=== PATIENT | female | born 1955 | race Caucasian/White ===

== ENCOUNTER 2020-03-17 06:15 | Observation (INO) ==
[2020-03-17] MEDS ORDERED: Aspirin 81 MG TAB.CHEW PO ONE (06:34)
[2020-03-17] MEDS ORDERED: 0.9 % Sodium Chloride 1,000 ML IV ONE ×2 (06:34→13:03)
[2020-03-17] MEDS ORDERED: Ipratropium/Albuterol Neb 3 ML IH ONE ×3 (06:34→11:40)
[2020-03-17] MEDS ORDERED: methylPREDNISolone 125 MG/2 ML VIAL IVP ONE (06:34)
[2020-03-17 07:03] LABS: Basophils # 0.1 K/mcL (0.0-0.2); Basophils % 0.4 %; Eosinophils % 8.7 %; Hematocrit 36.1 % (35.3-44.9); Hemoglobin 11.6 g/dL (11.5-15.4); Immature Granulocytes % 0.5 % (0-4); Lymphocytes # 1.1 K/mcL (0.6-4.6); Lymphocytes % 4.9 %; Mean Corpuscular HGB Conc 32.1 g/dL (31.6-35.5); Mean Corpuscular Hemoglobin 27.6 pg (28.0-33.3); Mean Platelet Volume 9.6 fL (9.4-12.4); Monocytes # 0.6 K/mcL (0.0-1.3); Monocytes % 2.6 %; Platelet Count 384 K/mcL (140-400); Segmented Neutrophils % 82.9 %; White Blood Count 22.5 K/mcL (4.3-11.1)
[2020-03-17 07:13] LABS: Neutrophils # 18.7 K/mcL (1.6-8.9); Prothrombin Time 11.6 Seconds (9.4-12.1)
[2020-03-17 07:24] LABS: Alanine Aminotransferase 10 Units/L (7-52); Albumin 4.4 g/dL (3.5-5.7); Albumin/Globulin Ratio 1.7 (1.1-2.2); Alkaline Phosphatase 55 Units/L (34-104); Aspartate Amino Transferase 12 Units/L (13-39); BUN/Creatinine Ratio 17 (6-26); Bilirubin,Total 0.3 mg/dL (0.3-1.0); Blood Urea Nitrogen 10 mg/dL (8-23); Calcium 9.2 mg/dL (8.6-10.3); Carbon Dioxide 29 mEq/L (23-29); Chloride 95 mEq/L (98-107); Globulin 2.6 g/dL (2.4-3.5); Glucose 252 mg/dL (70-105); Osmolality,Calculated 284 (280-300); Potassium 4.8 mEq/L (3.5-5.1); Sodium 133 mEq/L (136-145); Troponin I < 0.03 ng/mL (< 0.04); eGFR For African Americans > 60 (> 60); eGFR For Non-African Americans > 60 (> 60)
[2020-03-17 07:37] LABS: Bilirubin,Urine Negative (Negative); Blood,Urine Negative (Negative); Clarity,Urine Clear (Clear); Glucose,Urine (UA) Normal (Normal); Ketones,Urine Negative (Negative); Leukocyte Esterase,Urine Negative (Negative); Nitrite,Urine Negative (Negative); Protein,Urine 30 mg/dL (Neg-Trace); Urobilinogen,Urine Normal (Normal)
[2020-03-17 07:48] LABS: Color,Urine Light Yellow (Yellow)
[2020-03-17 07:54] LABS: Magnesium 1.3 mg/dL (1.6-2.6)
[2020-03-17 07:56] LABS: Amorphous Sediment,Urine Few per hpf (Few); Bacteria,Urine Few per hpf (None-Few); Granular Casts,Urine Few per lpf (None Seen); Mucus,Urine Few per lpf (Few); RBC,Urine 0-3 per hpf (0-3); Squamous Epithelial Cell,Urine Few per lpf (None-Few); WBC,Urine 0-3 per hpf (0-3)
[2020-03-17] MEDS ORDERED: Isovue-370 500 ML BOTTLE IVP ONE (08:08)
[2020-03-17] MEDS ORDERED: levoFLOXacin 750 MG/150 ML 750 MG/150 ML BAG IVPB ONE (08:20)
[2020-03-17 08:22] LABS: ABG Base Excess 3 mEq/L (-2 to 3); ABG HCO3 30 mEq/L (21-27); ABG Oxygen Saturation 94 % (95-98); ABG PCO2 58 mmHg (35-45); ABG PH 7.32 pH Units (7.32-7.45); ABG PO2 77 mmHg (85-104); ABG TCO2 32 mEq/L (20-26)
[2020-03-17] MEDS ORDERED: Ondansetron ODT 4 MG TAB.RAPDIS SL PRN (13:00)
[2020-03-17] MEDS ORDERED: Naloxone 0.4 MG/ML INJ IVP PRN (13:00)
[2020-03-17] MEDS ORDERED: Dextrose Gel 15 GM/37.5 ML TUBE PO PRN ×2 (13:02)
[2020-03-17] MEDS ORDERED: D5% in Water 1,000 ML IVC PRN (13:02)
[2020-03-17] MEDS ORDERED: *HR* Dextrose 50 % in Water (Vial) 50 ML VIAL IVP PRN (13:02)
[2020-03-17] MEDS: Ipratropium/Albuterol Neb 3 ML IH PRN ×2 (17:33→23:30)
[2020-03-17] MEDS: Azithromycin 500 MG in 0.9 % Sodium Chloride 250 ML IVPB SCH (17:54)
[2020-03-17] MEDS: MethylPREDNISolone 40 MG/ML VIAL IVP SCH (17:55)
[2020-03-17] MEDS: Magnesium Oxide 400 MG TABLET PO SCH ×2 (18:05→20:29)
[2020-03-17] MEDS: Insulin LISPRO 300 UNITS/3 ML VIAL SQ SCH ×2 (18:06→20:29)
[2020-03-17] MEDS: Gabapentin 300 MG CAPSULE PO SCH ×2 (18:06→20:29)
[2020-03-17] MEDS: carvediloL 25 MG TABLET PO SCH (18:06)
[2020-03-17 20:42] LABS: Estimated Average Glucose 140 mg/dl; Hemoglobin A1C 6.5 %
[2020-03-17] MEDS ORDERED: NON-FORMULARY MEDICATION 1 EACH EACH (Cetirizine Hcl [All Day Allergy] 10 MG) PO SCH (21:00)
[2020-03-17] MEDS ORDERED: MAGNESIUM CHLORIDE 71.5 MG PO SCH (21:00)
[2020-03-18] MEDS: MethylPREDNISolone 40 MG/ML VIAL IVP SCH ×4 (00:43→17:55)
[2020-03-18] MEDS: Ipratropium/Albuterol Neb 3 ML IH PRN ×3 (07:16→22:19)
[2020-03-18] MEDS: STIOLTO RESPIMAT IH SCH (07:17)
[2020-03-18 07:47] LABS: Basophils % 0.1 %; Hematocrit 31.2 % (35.3-44.9); Hemoglobin 10.1 g/dL (11.5-15.4); Immature Granulocytes % 0.5 % (0-4); Lymphocytes # 0.6 K/mcL (0.6-4.6); Lymphocytes % 4.6 %; Mean Corpuscular HGB Conc 32.4 g/dL (31.6-35.5); Mean Corpuscular Hemoglobin 27.3 pg (28.0-33.3); Mean Corpuscular Volume 84.3 fL (83.0-100.0); Mean Platelet Volume 9.3 fL (9.4-12.4); Monocytes # 0.2 K/mcL (0.0-1.3); Monocytes % 1.6 %; Neutrophils # 12.3 K/mcL (1.6-8.9); Platelet Count 307 K/mcL (140-400); Segmented Neutrophils % 93.2 %; White Blood Count 13.2 K/mcL (4.3-11.1)
[2020-03-18] MEDS: Insulin LISPRO 300 UNITS/3 ML VIAL SQ SCH ×4 (08:24→20:26)
[2020-03-18] MEDS: carvediloL 25 MG TABLET PO SCH ×2 (08:26→16:38)
[2020-03-18] MEDS: Loratadine 10 MG TABLET PO SCH (08:27)
[2020-03-18] MEDS: Aspirin Enteric Coated 81 MG Tablet PO SCH (08:27)
[2020-03-18] MEDS: Isosorbide MONOnitrate (24 HR) 30 MG TAB.ER.24H PO SCH (08:28)
[2020-03-18] MEDS: Magnesium Oxide 400 MG TABLET PO SCH ×3 (08:28→20:25)
[2020-03-18] MEDS: Folic Acid 1 MG TABLET PO SCH (08:28)
[2020-03-18] MEDS: Gabapentin 300 MG CAPSULE PO SCH ×3 (08:29→20:26)
[2020-03-18] MEDS: Nicotine 21 MG PATCH.TD24 TD SCH (08:29)
[2020-03-18] MEDS: Multivit/Ca/Min/Fe/FA 1 TAB TABLET PO SCH (08:30)
[2020-03-18] MEDS: lisinopriL 10 MG TABLET PO SCH (08:30)
[2020-03-18 09:09] LABS: BUN/Creatinine Ratio 22 (6-26); Blood Urea Nitrogen 11 mg/dL (8-23); Carbon Dioxide 32 mEq/L (23-29); Chloride 97 mEq/L (98-107); Glucose 179 mg/dL (70-105); Osmolality,Calculated 284 (280-300); Potassium 4.4 mEq/L (3.5-5.1); Sodium 135 mEq/L (136-145); eGFR For African Americans > 60 (> 60); eGFR For Non-African Americans > 60 (> 60)
[2020-03-18 09:50] LABS: Calcium 8.7 mg/dL (8.6-10.3)
[2020-03-18] MEDS ORDERED: GuaiFENesin Liq 200 MG/10 ML UDC PO PRN (11:12)
[2020-03-18] MEDS: Azithromycin 500 MG in 0.9 % Sodium Chloride 250 ML IVPB SCH (16:36)
[2020-03-18 20:29] LABS: Bilirubin,Urine Negative (Negative); Blood,Urine Negative (Negative); Clarity,Urine Slightly Cloudy (Clear); Color,Urine Yellow (Yellow); Glucose,Urine (UA) 500 mg/dL (Normal); Ketones,Urine Negative (Negative); Leukocyte Esterase,Urine Negative (Negative); Nitrite,Urine Negative (Negative); Protein,Urine Negative (Neg-Trace); Urobilinogen,Urine Normal (Normal)
[2020-03-18 20:36] LABS: Bacteria,Urine Few per hpf (None-Few); Mucus,Urine Few per lpf (Few); RBC,Urine 0-3 per hpf (0-3); Squamous Epithelial Cell,Urine Few per lpf (None-Few); WBC,Urine 0-3 per hpf (0-3)
[2020-03-19] MEDS: MethylPREDNISolone 40 MG/ML VIAL IVP SCH ×2 (00:39→05:21)
[2020-03-19 06:55] LABS: Hematocrit 29.3 % (35.3-44.9); Hemoglobin 9.7 g/dL (11.5-15.4); Mean Corpuscular HGB Conc 33.1 g/dL (31.6-35.5); Mean Corpuscular Hemoglobin 27.8 pg (28.0-33.3); Mean Platelet Volume 9.5 fL (9.4-12.4); Platelet Count 329 K/mcL (140-400); Red Blood Count 3.49 M/mcL (3.82-4.97); Red Cell Distribution Width 13.7 % (11.5-14.5)
[2020-03-19 07:29] LABS: BUN/Creatinine Ratio 23 (6-26); Blood Urea Nitrogen 11 mg/dL (8-23); Calcium 8.7 mg/dL (8.6-10.3); Carbon Dioxide 32 mEq/L (23-29); Chloride 96 mEq/L (98-107); Glucose 168 mg/dL (70-105); Osmolality,Calculated 279 (280-300); Potassium 4.6 mEq/L (3.5-5.1); Sodium 133 mEq/L (136-145); eGFR For African Americans > 60 (> 60); eGFR For Non-African Americans > 60 (> 60)
[2020-03-19 08:07] VITALS: BP 145/61
[2020-03-19] MEDS: Isosorbide MONOnitrate (24 HR) 30 MG TAB.ER.24H PO SCH (08:08)
[2020-03-19] MEDS: Aspirin Enteric Coated 81 MG Tablet PO SCH (08:08)
[2020-03-19] MEDS: Folic Acid 1 MG TABLET PO SCH (08:08)
[2020-03-19] MEDS: carvediloL 25 MG TABLET PO SCH (08:08)
[2020-03-19] MEDS: Gabapentin 300 MG CAPSULE PO SCH (08:08)
[2020-03-19] MEDS: Loratadine 10 MG TABLET PO SCH (08:08)
[2020-03-19] MEDS: Multivit/Ca/Min/Fe/FA 1 TAB TABLET PO SCH (08:08)
[2020-03-19] MEDS: Nicotine 21 MG PATCH.TD24 TD SCH (08:09)
[2020-03-19] MEDS: lisinopriL 10 MG TABLET PO SCH (08:09)
[2020-03-19] MEDS: Insulin LISPRO 300 UNITS/3 ML VIAL SQ SCH ×2 (08:10→11:52)
[2020-03-19] MEDS: Magnesium Oxide 400 MG TABLET PO SCH (08:30)
[2020-03-19] MEDS ORDERED: cefTRIAXone 1,000 MG in 0.9 % Sodium Chloride Mini Bag 100 ML IVPB SCH (09:00)
[2020-03-19] MEDS ORDERED: Magnesium Oxide 400 MG TABLET PO ONE (09:00)
[2020-03-19] MEDS: Ipratropium/Albuterol Neb 3 ML IH PRN (09:52)
[2020-03-19] MEDS: STIOLTO RESPIMAT IH SCH (09:52)
[2020-03-19 10:40] LABS: Adenovirus Not Detected (Not Detect); Bordetella Pertussis Not Detected (Not Detect); Chlamydophila pneumoniae Not Detected (Not Detect); Coronavirus 229E Not Detected (Not Detect); Coronavirus HKU1 Not Detected (Not Detect); Coronavirus NL63 Not Detected (Not Detect); Coronavirus OC43 Not Detected (Not Detect); Human Metapneumovirus Not Detected (Not Detect); Human Rhinovirus/Enterovirus Not Detected (Not Detect); Influenza A Subtype 2009 H1 Not Detected (Not Detect); Influenza B Not Detected (Not Detect); Mycoplasma pneumoniae Not Detected (Not Detect); Parainfluenza Virus 1 Not Detected (Not Detect); Parainfluenza Virus 2 Not Detected (Not Detect); Parainfluenza Virus 3 Not Detected (Not Detect); Parainfluenza Virus 4 Not Detected (Not Detect); Respiratory Syncytial Virus Not Detected (Not Detect)
[2020-03-19] MEDS ORDERED: MethylPREDNISolone 40 MG/ML VIAL IVP SCH (16:00)
== END 2020-03-19 13:59 | disposition home or self-care (01) ==
LOC: INPPIK 06:15 → EMEROOPIK 06:15 → INPPIK 13:23
PROVIDERS: ADMIT Family Medicine; ATTEND Family Medicine

== ENCOUNTER 2021-04-20 17:12 | Inpatient (IN) ==
[2021-04-20 18:27] LABS: Basophils % 0.3 %; Eosinophils % 0.2 %; Hematocrit 31.8 % (35.3-44.9); Hemoglobin 9.8 g/dL (11.5-15.4); Immature Granulocytes % 0.5 % (0-4); Lymphocytes # 0.6 K/mcL (0.6-4.6); Lymphocytes % 4.8 %; Mean Corpuscular HGB Conc 30.8 g/dL (31.6-35.5); Mean Corpuscular Hemoglobin 28.1 pg (28.0-33.3); Mean Corpuscular Volume 91.1 fL (83.0-100.0); Mean Platelet Volume 11.1 fL (9.4-12.4); Monocytes % 7.6 %; Red Blood Count 3.49 M/mcL (3.82-4.97); Red Cell Distribution Width 15.7 % (11.5-14.5); Segmented Neutrophils % 86.6 %; White Blood Count 12.5 K/mcL (4.3-11.1)
[2021-04-20 18:36] LABS: INR 1.3; Prothrombin Time 14.9 Seconds (9.4-12.1)
[2021-04-20 18:37] LABS: Activated Partial Thrombo Time 28.4 Seconds (26.0-36.0)
[2021-04-20 18:38] LABS: Neutrophils # 10.8 K/mcL (1.6-8.9); Platelet Count 81 K/mcL (140-400)
[2021-04-20 18:46] LABS: Alanine Aminotransferase 12 Units/L (7-52); Albumin 3.4 g/dL (3.5-5.7); Albumin/Globulin Ratio 1.1 (1.1-2.2); Alkaline Phosphatase 47 Units/L (34-104); Aspartate Amino Transferase 17 Units/L (13-39); BUN/Creatinine Ratio 26 (6-26); Bilirubin,Total 0.4 mg/dL (0.3-1.0); Blood Urea Nitrogen 18 mg/dL (8-23); Calcium 8.3 mg/dL (8.6-10.3); Carbon Dioxide 23 mEq/L (23-29); Chloride 96 mEq/L (98-107); Globulin 3.2 g/dL (2.4-3.5); Glucose 165 mg/dL (70-105); Osmolality,Calculated 270 (280-300); Phosphorous 1.3 mg/dL (2.7-4.5); Sodium 127 mEq/L (136-145); Total Protein 6.6 g/dL (6.4-8.9); eGFR For African Americans > 60 (> 60); eGFR For Non-African Americans > 60 (> 60)
[2021-04-20 18:47] LABS: Troponin I < 0.03 ng/mL (< 0.04)
[2021-04-20] MEDS ORDERED: Isovue-370 500 ML BOTTLE IVP ONE (18:48)
[2021-04-20] MEDS ORDERED: Ipratropium/Albuterol Neb 3 ML IH ONE ×2 (20:26→20:49)
[2021-04-20] MEDS ORDERED: cefTRIAXone 1,000 MG in 0.9 % Sodium Chloride Mini Bag 100 ML IVPB ONE (20:47)
[2021-04-20] MEDS ORDERED: 0.9 % Sodium Chloride 1,000 ML IV ONE (20:49)
[2021-04-20] MEDS ORDERED: Azithromycin 500 MG in 0.9 % Sodium Chloride 250 ML IVPB ONE (21:51)
[2021-04-20] MEDS ORDERED: methylPREDNISolone 125 MG/2 ML VIAL IVP ONE (21:59)
[2021-04-21] MEDS ORDERED: NON-FORMULARY MEDICATION 1 EACH EACH (Alendronate Sodium [Fosamax] 70 MG Tablet) PO SCH (01:01)
[2021-04-21] MEDS ORDERED: Naloxone 0.4 MG/ML INJ IVP PRN (01:01)
[2021-04-21] MEDS ORDERED: Nitroglycerin 0.4 MG TAB.SUBL SL PRN (01:01)
[2021-04-21] MEDS ORDERED: Ipratropium/Albuterol Neb 3 ML IH SCH (01:01)
[2021-04-21] MEDS: Ipratropium/Albuterol Neb 3 ML IH SCH ×6 (01:52→20:10)
[2021-04-21] MEDS ORDERED: 0.9 % Sodium Chloride 1,000 ML IVC SCH (02:00)
[2021-04-21 03:23] LABS: Bilirubin,Urine Negative (Negative); Blood,Urine Trace-intact (Negative); Clarity,Urine Clear (Clear); Color,Urine Yellow (Yellow); Glucose,Urine (UA) Normal (Normal); Ketones,Urine Negative (Negative); Leukocyte Esterase,Urine Negative (Negative); Nitrite,Urine Negative (Negative); PH,Urine 6.5 pH Units (5.0-8.0); Protein,Urine 100 mg/dL (Neg-Trace); Urobilinogen,Urine Normal (Normal)
[2021-04-21 03:37] LABS: RBC,Urine 0-3 per hpf (0-3); Squamous Epithelial Cell,Urine Few per hpf (None-Few)
[2021-04-21 03:38] LABS: Bacteria,Urine None Seen per hpf (None-Few)
[2021-04-21 07:46] LABS: Basophils % 0.1 %; Hematocrit 28.4 % (35.3-44.9); Hemoglobin 9.2 g/dL (11.5-15.4); Immature Granulocytes % 0.5 % (0-4); Lymphocytes # 0.4 K/mcL (0.6-4.6); Lymphocytes % 3.7 %; Mean Corpuscular HGB Conc 32.4 g/dL (31.6-35.5); Mean Corpuscular Volume 86.6 fL (83.0-100.0); Mean Platelet Volume 9.3 fL (9.4-12.4); Monocytes # 0.2 K/mcL (0.0-1.3); Monocytes % 1.9 %; Neutrophils # 10.5 K/mcL (1.6-8.9); Platelet Count 265 K/mcL (140-400); Red Blood Count 3.28 M/mcL (3.82-4.97); Red Cell Distribution Width 15.5 % (11.5-14.5); Segmented Neutrophils % 93.8 %; White Blood Count 11.2 K/mcL (4.3-11.1)
[2021-04-21] MEDS: Budesonide/Formoterol 160/4.5 1 PUFF INH IH SCH ×2 (07:54→20:21)
[2021-04-21 08:09] LABS: BUN/Creatinine Ratio 29 (6-26); Blood Urea Nitrogen 18 mg/dL (8-23); Carbon Dioxide 25 mEq/L (23-29); Chloride 98 mEq/L (98-107); Glucose 236 mg/dL (70-105); Osmolality,Calculated 282 (280-300); Potassium 4.5 mEq/L (3.5-5.1); Sodium 131 mEq/L (136-145); eGFR For African Americans > 60 (> 60); eGFR For Non-African Americans > 60 (> 60)
[2021-04-21] MEDS: Aspirin Enteric Coated 81 MG Tablet PO SCH (08:25)
[2021-04-21] MEDS: Gabapentin 300 MG CAPSULE PO SCH ×3 (08:25→21:16)
[2021-04-21] MEDS: Magnesium Oxide 400 MG TABLET PO SCH (08:26)
[2021-04-21] MEDS: Loratadine 10 MG TABLET PO SCH (08:27)
[2021-04-21] MEDS: carvediloL 6.25 MG TABLET PO SCH ×2 (08:28→16:59)
[2021-04-21] MEDS: *HR* SitaGLIPtin 100 MG TABLET PO SCH (08:28)
[2021-04-21] MEDS: Cyanocobalamin (B-12) 1,000 MCG TABLET PO SCH (08:29)
[2021-04-21] MEDS: Isosorbide MONOnitrate (24 HR) 30 MG TAB.ER.24H PO SCH (08:29)
[2021-04-21] MEDS: lisinopriL 10 MG TABLET PO SCH (08:30)
[2021-04-21] MEDS: Folic Acid 1 MG TABLET PO SCH (08:30)
[2021-04-21] MEDS: cefTRIAXone 1,000 MG in Water for inj. (sterile) 10 ML IVP SCH (08:31)
[2021-04-21] MEDS ORDERED: Dextrose Gel 15 GM/37.5 ML TUBE PO PRN ×2 (08:54)
[2021-04-21] MEDS ORDERED: *HR* Dextrose 50 % in Water (Vial) 50 ML VIAL IVP PRN (08:54)
[2021-04-21] MEDS ORDERED: D5% in Water 1,000 ML IVC PRN (08:54)
[2021-04-21] MEDS ORDERED: EVENING PRIMROSE OIL 500 MG PO SCH (09:00)
[2021-04-21] MEDS ORDERED: *HR* Metformin 500 MG TABLET PO SCH (09:00)
[2021-04-21] MEDS ORDERED: MAGNESIUM GLYCINATE MAG OXIDE PO SCH (09:00)
[2021-04-21] MEDS ORDERED: MAGNESIUM CHLORIDE 71.5 MG PO SCH (09:00)
[2021-04-21] MEDS ORDERED: Tiotropium 10 INH DOSE IH SCH (10:00)
[2021-04-21] MEDS: MethylPREDNISolone 40 MG/ML VIAL IVP SCH ×3 (10:20→23:25)
[2021-04-21] MEDS: Insulin LISPRO 300 UNITS/3 ML VIAL SUBQ SCH ×4 (10:25→21:16)
[2021-04-21] MEDS ORDERED: Insulin LISPRO 300 UNITS/3 ML VIAL SUBQ SCH (11:30)
[2021-04-21 12:15] LABS: Adenovirus Not Detected (Not Detect); Bordetella Pertussis Not Detected (Not Detect); Chlamydophila pneumoniae Not Detected (Not Detect); Coronavirus 229E Not Detected (Not Detect); Coronavirus HKU1 Not Detected (Not Detect); Coronavirus NL63 Not Detected (Not Detect); Coronavirus OC43 Not Detected (Not Detect); Human Metapneumovirus Not Detected (Not Detect); Human Rhinovirus/Enterovirus Not Detected (Not Detect); Influenza A Subtype 2009 H1 Not Detected (Not Detect); Influenza B Not Detected (Not Detect); Mycoplasma pneumoniae Not Detected (Not Detect); Parainfluenza Virus 1 Not Detected (Not Detect); Parainfluenza Virus 2 Not Detected (Not Detect); Parainfluenza Virus 3 Not Detected (Not Detect); Parainfluenza Virus 4 Not Detected (Not Detect); Respiratory Syncytial Virus Not Detected (Not Detect); SARS-CoV-2 Not Detected (Not Detect)
[2021-04-21] MEDS: Benzonatate 100 MG CAPSULE PO PRN (19:35)
[2021-04-21] MEDS: Azithromycin 500 MG in 0.9 % Sodium Chloride 250 ML IVPB SCH (21:17)
[2021-04-22] MEDS: Ipratropium/Albuterol Neb 3 ML IH SCH ×6 (00:24→21:02)
[2021-04-22 07:39] LABS: Basophils % 0.2 %; Hematocrit 28.4 % (35.3-44.9); Immature Granulocytes % 1.1 % (0-4); Lymphocytes # 0.4 K/mcL (0.6-4.6); Lymphocytes % 3.8 %; Mean Corpuscular HGB Conc 31.7 g/dL (31.6-35.5); Mean Corpuscular Hemoglobin 27.6 pg (28.0-33.3); Mean Corpuscular Volume 87.1 fL (83.0-100.0); Mean Platelet Volume 9.4 fL (9.4-12.4); Monocytes # 0.3 K/mcL (0.0-1.3); Monocytes % 2.9 %; Neutrophils # 9.6 K/mcL (1.6-8.9); Platelet Count 304 K/mcL (140-400); Red Blood Count 3.26 M/mcL (3.82-4.97); Red Cell Distribution Width 15.5 % (11.5-14.5); White Blood Count 10.5 K/mcL (4.3-11.1)
[2021-04-22] MEDS: Budesonide/Formoterol 160/4.5 1 PUFF INH IH SCH ×2 (07:45→21:02)
[2021-04-22 07:52] LABS: BUN/Creatinine Ratio 37 (6-26); Blood Urea Nitrogen 28 mg/dL (8-23); Carbon Dioxide 24 mEq/L (23-29); Chloride 98 mEq/L (98-107); Glucose 256 mg/dL (70-105); Osmolality,Calculated 280 (280-300); Potassium 4.4 mEq/L (3.5-5.1); Sodium 128 mEq/L (136-145); eGFR For African Americans > 60 (> 60); eGFR For Non-African Americans > 60 (> 60)
[2021-04-22] MEDS: Aspirin Enteric Coated 81 MG Tablet PO SCH (08:22)
[2021-04-22] MEDS: Gabapentin 300 MG CAPSULE PO SCH ×3 (08:23→20:20)
[2021-04-22] MEDS: Loratadine 10 MG TABLET PO SCH (08:23)
[2021-04-22] MEDS: *HR* SitaGLIPtin 100 MG TABLET PO SCH (08:23)
[2021-04-22] MEDS: Magnesium Oxide 400 MG TABLET PO SCH (08:24)
[2021-04-22] MEDS: Cyanocobalamin (B-12) 1,000 MCG TABLET PO SCH (08:24)
[2021-04-22] MEDS: Furosemide 20 MG TABLET PO SCH ×2 (08:24→20:19)
[2021-04-22] MEDS: MethylPREDNISolone 40 MG/ML VIAL IVP SCH ×2 (08:25→15:42)
[2021-04-22] MEDS: cefTRIAXone 1,000 MG in Water for inj. (sterile) 10 ML IVP SCH (08:28)
[2021-04-22] MEDS: Folic Acid 1 MG TABLET PO SCH (08:30)
[2021-04-22] MEDS: carvediloL 6.25 MG TABLET PO SCH ×2 (08:30→17:23)
[2021-04-22] MEDS: Isosorbide MONOnitrate (24 HR) 30 MG TAB.ER.24H PO SCH (08:31)
[2021-04-22] MEDS: lisinopriL 10 MG TABLET PO SCH (08:31)
[2021-04-22] MEDS: Insulin LISPRO 300 UNITS/3 ML VIAL SUBQ SCH ×4 (08:32→20:20)
[2021-04-22] MEDS: *HR* Metformin 500 MG TABLET PO SCH (17:23)
[2021-04-22] MEDS: Azithromycin 500 MG in 0.9 % Sodium Chloride 250 ML IVPB SCH (22:39)
[2021-04-22] MEDS: Benzonatate 100 MG CAPSULE PO PRN (22:46)
[2021-04-23] MEDS: MethylPREDNISolone 40 MG/ML VIAL IVP SCH ×2 (00:09→08:21)
[2021-04-23] MEDS: Ipratropium/Albuterol Neb 3 ML IH SCH ×4 (00:27→11:17)
[2021-04-23 06:51] VITALS: BP 137/65
[2021-04-23] MEDS: carvediloL 6.25 MG TABLET PO SCH (08:18)
[2021-04-23] MEDS: Loratadine 10 MG TABLET PO SCH (08:19)
[2021-04-23] MEDS: *HR* SitaGLIPtin 100 MG TABLET PO SCH (08:19)
[2021-04-23] MEDS: lisinopriL 10 MG TABLET PO SCH (08:19)
[2021-04-23] MEDS: Isosorbide MONOnitrate (24 HR) 30 MG TAB.ER.24H PO SCH (08:19)
[2021-04-23] MEDS: Furosemide 20 MG TABLET PO SCH (08:19)
[2021-04-23] MEDS: Aspirin Enteric Coated 81 MG Tablet PO SCH (08:19)
[2021-04-23] MEDS: Folic Acid 1 MG TABLET PO SCH (08:20)
[2021-04-23] MEDS: *HR* Metformin 500 MG TABLET PO SCH (08:20)
[2021-04-23] MEDS: Cyanocobalamin (B-12) 1,000 MCG TABLET PO SCH (08:20)
[2021-04-23] MEDS: cefTRIAXone 1,000 MG in Water for inj. (sterile) 10 ML IVP SCH (08:20)
[2021-04-23] MEDS: Magnesium Oxide 400 MG TABLET PO SCH (08:20)
[2021-04-23] MEDS: Gabapentin 300 MG CAPSULE PO SCH (08:20)
[2021-04-23] MEDS: Insulin LISPRO 300 UNITS/3 ML VIAL SUBQ SCH ×2 (08:21→11:59)
[2021-04-23 08:35] LABS: Basophils % 0.3 %; Hematocrit 27.4 % (35.3-44.9); Hemoglobin 8.8 g/dL (11.5-15.4); Immature Granulocytes % 4.1 % (0-4); Lymphocytes # 0.5 K/mcL (0.6-4.6); Lymphocytes % 4.6 %; Mean Corpuscular HGB Conc 32.1 g/dL (31.6-35.5); Mean Corpuscular Hemoglobin 27.2 pg (28.0-33.3); Mean Corpuscular Volume 84.8 fL (83.0-100.0); Mean Platelet Volume 9.4 fL (9.4-12.4); Monocytes # 0.5 K/mcL (0.0-1.3); Monocytes % 4.3 %; Neutrophils # 9.6 K/mcL (1.6-8.9); Platelet Count 393 K/mcL (140-400); Red Blood Count 3.23 M/mcL (3.82-4.97); Red Cell Distribution Width 15.6 % (11.5-14.5); Segmented Neutrophils % 86.7 %
[2021-04-23 08:45] LABS: BUN/Creatinine Ratio 38 (6-26); Blood Urea Nitrogen 27 mg/dL (8-23); Calcium 8.4 mg/dL (8.6-10.3); Carbon Dioxide 25 mEq/L (23-29); Chloride 97 mEq/L (98-107); Glucose 235 mg/dL (70-105); Osmolality,Calculated 281 (280-300); Potassium 4.6 mEq/L (3.5-5.1); Sodium 129 mEq/L (136-145); eGFR For African Americans > 60 (> 60); eGFR For Non-African Americans > 60 (> 60)
[2021-04-23] MEDS: Budesonide/Formoterol 160/4.5 1 PUFF INH IH SCH (09:59)
[2021-04-26] MEDS ORDERED: Ergocalciferol (VIT D2) 50,000 UNIT (1.25MG) CAP PO SCH (09:00)
== END 2021-04-23 13:00 | disposition home or self-care (01) | DRG 194 ==
LOC: SUPCPDRO → INPPIK 17:12 → EMEROOPIK 17:12 → INPPIK 04-21 00:39
PROVIDERS: ADMIT Student in an Organized Health Care Education/Training Program; ATTEND Student in an Organized Health Care Education/Training Program